=== PATIENT | male | born 1955 | race American Indian/Alaskan Native ===

== ENCOUNTER 2018-04-10 10:23 | Emergency (ER) | payer MEDICARE, BC ==
[2018-04-10 11:48] LABS: Basophils % (Auto) 1.4 % (0.0-1.8); Eosinophils % (Auto) 1.5 % (0.0-4.3); Hematocrit 38.4 % (35.5-45.6); Hemoglobin 12.6 gm/dl (11.8-15.2); Lymphocytes # (Auto) 0.7 K/mm3 (1.2-5.4); Lymphocytes % (Auto) 26.4 % (13.4-35.0); Mean Corpuscular HGB Conc 33 % (32-34); Mean Corpuscular Hemoglobin 30 pg (28-32); Mean Corpuscular Volume 93 fl (84-94); Monocytes # (Auto) 0.2 K/mm3 (0.0-0.8); Monocytes % (Auto) 7.6 % (0.0-7.3); Platelet Count 174 K/mm3 (140-440); Red Blood Count 4.14 M/mm3 (3.65-5.03); Red Cell Distribution Width 14.6 % (13.2-15.2)
[2018-04-10 12:04] LABS: BUN/Creatinine Ratio 15; Blood Urea Nitrogen 12 mg/dL (9-20); Calcium 9.4 mg/dL (8.4-10.2); Hemolysis Index 3
[2018-04-10] MEDS ORDERED: TYLENOL PO ONE (12:46)
[2018-04-10 13:40] LABS: Color,Urine Straw (Yellow)
[2018-04-10 13:42] LABS: Bilirubin,Urine Negative (Negative); Blood,Urine 3+ (Negative); Protein,Urine <15 mg/dL mg/dL (Negative)
--- NOTE | 2018-04-10 14:25 | Emergency Department Report ---
HPI - General Chief Complaint: Urogenital-Male Time Seen by Provider: 04/10/18 11:30 - HPI HPI: The patient is a 62-year-old male with a significant history of enlarged prostate and recurrent urinary retention, who presents for evaluation of abdominal pain and decreased urine output. The patient states that this morning upon awakening, approximately 2-3 hours prior to arrival, he developed moderate in severity lower abdominal pain, pressure-like in quality, constant, associated with inability to urinate. The patient denies fever, chills, night sweats, diarrhea, blood in the stool, dark tarry stool, dysuria, hematuria, flank pain, genital discharge, inability to pass flatus. ED Past Medical Hx - Medications Home Medications: Home Medications Medication Instructions Recorded Confirmed Last Taken Type Tamsulosin [Flomax] 0.4 mg PO QDAY #14 cap 04/10/18 Unknown Rx traMADol [Ultram 50 MG tab] 50 mg PO Q6HR PRN #20 tablet 04/10/18 Unknown Rx ED Review of Systems ROS: Stated complaint: CANT URINATE Other details as noted in HPI Constitutional: denies: fever ENT: denies: throat or neck pain Respiratory: denies: cough, shortness of breath Cardiovascular: denies: chest pain Endocrine: denies unexplained weight loss or gain Gastrointestinal: reports abdominal pain, nausea Genitourinary: denies: dysuria Musculoskeletal: denies: leg swelling Skin: denies: rash Neurological: denies: headache Hematological/Lymphatic: denies: easy bleeding or easy bruising Psych: denies sadness or hopelessness Physical Exam - Physical Exam Vital Signs: Vital Signs 04/10/18 04/10/18 04/10/18 10:26 11:55 11:56 Temperature 98.0 F 98.1 F Pulse Rate 115 H 65 Respiratory 15 15 Rate Blood Pressure 156/96 Blood Pressure 129/78 [Right] O2 Sat by Pulse 100 100 100 Oximetry Physical Exam: General: well-nourished, well-developed, no acute distress Head: Normocephalic, atraumatic Eyes: normal sclera ENT: Mucous membranes are pink and moist Neck: trachea midline, neck supple, No neck stiffness, no cervical adenopathy Respiratory: Breath sounds equal bilaterally, no wheezing, rales, or rhonchi Cardio: S1 and S2 present, no murmurs, rubs, gallops, capillary refill is brisk Abdomen: Normoactive bowel sounds, soft abdomen, suprapubic fullness and tenderness to palpation present, no rigidity, no guarding or rebound tenderness Chest WALL/Back: No tenderness to palpation of the chest wall, no CVA tenderness with percussion Musc: No pitting edema Skin: No rash Neuro: no facial drooping, normal speech Psych: Normal affect ED Course Vital Signs 04/10/18 04/10/18 04/10/18 10:26 11:55 11:56 Temperature 98.0 F 98.1 F Pulse Rate 115 H 65 Respiratory 15 15 Rate Blood Pressure 156/96 Blood Pressure 129/78 [Right] O2 Sat by Pulse 100 100 100 Oximetry ED Medical Decision Making - Lab Data Result diagrams: 04/10/18 11:38 04/10/18 11:38 - Medical Decision Making The patient was seen and examined by myself. The patient is placed on a front desk monitor and continuous pulse ox. On initial evaluation, the patient was found to be in no distress. Evaluation orders were placed. Patient was given pain medicine. A Ruffin catheter was placed without difficulty. Lab was also reassuring including normal renal function and urinalysis is negative for UTI. The patient was reevaluated and reported that their symptoms were markedly improved. The patient is stable for discharge with outpatient follow-up. The patient is given follow-up and return instructions. The patient expressed understanding and agreed with the plan. The patient is discharged in stable condition. Critical care attestation.: If time is entered above; I have spent that time in minutes in the direct care of this critically ill patient, excluding procedure time. ED Disposition Clinical Impression: Acute urinary retention, Acute suprapubic pain Disposition: - TO HOME OR SELFCARE Is pt being admited?: No Does the pt Need Aspirin: No Condition: Stable Instructions: Benign Prostatic Hypertrophy (ED), Urinary Retention in Men (ED) Prescriptions: Tamsulosin [Flomax] 0.4 mg PO QDAY #14 cap traMADol [Ultram 50 MG tab] 50 mg PO Q6HR PRN #20 tablet PRN Reason: Pain Referrals: PRIMARY CARE, [Primary Care Provider] - 3-5 Days FRANK MILLER MD [Staff Physician] - 3-5 Days Time of Disposition: 14:18
[2018-04-10 15:25] VITALS: BP 135/79
== END 2018-04-10 15:31 | disposition home or self-care (01) ==
LOC: ED 10:23
DX: R33.9 Retention of urine, unspecified (principal)
CPT/HCPCS: 36415; 51702; 80048; 81001; 85025

== ENCOUNTER 2018-05-14 15:25 | Emergency (ER) | payer MEDICARE, BC ==
--- NOTE | 2018-05-14 15:59 | Emergency Department Report ---
<KALYN PHIPPS P - Last Filed: 05/14/18 23:55> ED Male HPI - General Chief complaint: Urogenital-Male Stated complaint: CANT URINATE/PAIN Time Seen by Provider: 05/14/18 15:58 - Related Data Previous Rx's Medication Instructions Recorded Last Taken Type Tamsulosin [Flomax] 0.4 mg PO QDAY #14 cap 04/10/18 Unknown Rx traMADol [Ultram 50 MG tab] 50 mg PO Q6HR PRN #20 tablet 04/10/18 Unknown Rx HYDROcodone/APAP 5-325 [[place] 1 each PO Q6HR PRN #14 tablet 05/14/18 Unknown Rx 5/325] Ondansetron [Zofran TAB] 4 mg PO Q8HR PRN #20 tablet 05/14/18 Unknown Rx cephALEXin [Keflex] 500 mg PO QID #30 capsule 05/14/18 Unknown Rx Allergies Allergy/AdvReac Type Severity Reaction Status Date / Time aspirin Allergy Unknown Verified 05/14/18 15:32 ED Review of Systems ROS: Stated complaint: CANT URINATE/PAIN Other details as noted in HPI ED Past Medical Hx - Medications Home Medications: Home Medications Medication Instructions Recorded Confirmed Last Taken Type Tamsulosin [Flomax] 0.4 mg PO QDAY #14 cap 04/10/18 Unknown Rx traMADol [Ultram 50 MG tab] 50 mg PO Q6HR PRN #20 tablet 04/10/18 Unknown Rx HYDROcodone/APAP 5-325 [[place] 1 each PO Q6HR PRN #14 tablet 05/14/18 Unknown Rx 5/325] Ondansetron [Zofran TAB] 4 mg PO Q8HR PRN #20 tablet 05/14/18 Unknown Rx cephALEXin [Keflex] 500 mg PO QID #30 capsule 05/14/18 Unknown Rx ED Course Vital Signs 05/14/18 05/14/18 05/14/18 15:29 19:27 19:30 Temperature 98 F Pulse Rate 116 H 74 Respiratory 20 10 L 13 Rate Blood Pressure 150/105 138/76 O2 Sat by Pulse 99 98 Oximetry 05/14/18 05/14/18 05/14/18 19:35 19:45 20:01 Temperature Pulse Rate 73 79 75 Respiratory 14 12 12 Rate Blood Pressure 138/76 138/76 134/71 O2 Sat by Pulse 98 98 98 Oximetry 05/14/18 05/14/18 05/14/18 20:15 20:31 20:45 Temperature Pulse Rate 73 70 69 Respiratory 11 L 11 L 10 L Rate Blood Pressure 134/71 134/71 134/71 O2 Sat by Pulse 97 97 97 Oximetry 05/14/18 05/14/18 05/14/18 21:00 21:15 21:39 Temperature Pulse Rate 66 72 78 Respiratory 11 L 13 25 H Rate Blood Pressure 142/78 142/78 142/78 O2 Sat by Pulse 97 99 100 Oximetry 05/14/18 05/14/18 05/14/18 21:45 22:01 22:15 Temperature Pulse Rate 74 65 56 L Respiratory 15 13 10 L Rate Blood Pressure 142/78 142/78 142/78 O2 Sat by Pulse 100 98 97 Oximetry 05/14/18 05/14/18 05/14/18 22:31 22:45 23:01 Temperature Pulse Rate 67 62 73 Respiratory 10 L 10 L 11 L Rate Blood Pressure 142/78 142/78 142/78 O2 Sat by Pulse 98 98 98 Oximetry 05/14/18 05/14/18 05/14/18 23:15 23:31 23:45 Temperature Pulse Rate 75 78 71 Respiratory 11 L 13 14 Rate Blood Pressure 142/78 142/78 142/78 O2 Sat by Pulse 97 96 98 Oximetry 05/15/18 05/15/18 05/15/18 00:01 00:15 00:31 Temperature Pulse Rate 69 71 70 Respiratory 13 15 16 Rate Blood Pressure 142/78 142/78 142/78 O2 Sat by Pulse 98 97 97 Oximetry 05/15/18 05/15/18 05/15/18 00:45 01:01 01:15 Temperature Pulse Rate 70 81 63 Respiratory 13 11 L 12 Rate Blood Pressure 142/78 142/78 142/78 O2 Sat by Pulse 98 99 98 Oximetry 05/15/18 05/15/18 01:43 02:00 Temperature Pulse Rate Respiratory Rate Blood Pressure 142/78 142/78 O2 Sat by Pulse Oximetry ED Medical Decision Making - Lab Data Result diagrams: 05/14/18 16:40 05/14/18 19:44 Critical care attestation.: If time is entered above; I have spent that time in minutes in the direct care of this critically ill patient, excluding procedure time. ED Disposition Clinical Impression: Urinary retention Abdominal pain Qualifiers: Abdominal location: lower abdomen, unspecified Qualified Code(s): R10.30 - Lower abdominal pain, unspecified UTI (urinary tract infection) Qualifiers: Urinary tract infection type: acute cystitis Hematuria presence: without hematuria Qualified Code(s): N30.00 - Acute cystitis without hematuria Disposition: TO HOME OR SELFCARE Is pt being admited?: No Does the pt Need Aspirin: No Condition: Stable Instructions: Urinary Retention in Men (ED), Urinary Tract Infection in Men (ED ) Prescriptions: cephALEXin [Keflex] 500 mg PO QID #30 capsule HYDROcodone/APAP 5-325 [[place] 5/325] 1 each PO Q6HR PRN #14 tablet PRN Reason: Pain Ondansetron [Zofran TAB] 4 mg PO Q8HR PRN #20 tablet PRN Reason: Nausea Referrals: PRIMARY CARE, [Primary Care Provider] - 3-5 Days NELI PASCAL MD [Staff Physician] - 3-5 Days Time of Disposition: 23:56 <LEOBARDO BACON - Last Filed: 05/18/18 16:14> ED Male HPI - General Source: patient Mode of arrival: Ambulatory Limitations: No Limitations - History of Present Illness Initial comments: Patient said that this morning he couldn't urinate. He had the same problem last week and he was discharged home from the ED with a Ruffin catheter. The catheter was taken out last Tuesday by his urologist Dr. Franky Liriano. However this morning he noticed that he could not urinate. He also complained of suprapubic abdominal pain. Patient has a history of prostate cancer. Complaint: other (Urinary Obstruction) -: Sudden Radiation: none Severity: moderate Severity scale (0 -10): 5 Quality: aching Consistency: constant Improves with: urination Worsens with: none urinary retention ED Review of Systems Comment: All other systems reviewed and negative Constitutional: denies: chills, fever Eyes: denies: eye pain ENT: denies: ear pain Respiratory: denies: cough, orthopnea, shortness of breath Cardiovascular: denies: chest pain, palpitations, dyspnea on exertion, orthopnea Endocrine: no symptoms reported Gastrointestinal: abdominal pain. denies: nausea, vomiting, diarrhea Genitourinary: urgency, frequency. denies: hematuria Musculoskeletal: denies: back pain Skin: denies: rash, lesions, change in color Neurological: denies: headache, weakness, numbness, paresthesias Psychiatric: denies: anxiety, depression Hematological/Lymphatic: denies: easy bleeding, easy bruising ED Past Medical Hx - Past Medical History Additional medical history: enlarged prostate-PROSTATE CA-seed implant - Surgical History Additional Surgical History: left ankle - Social History Smoking Status: Never Smoker Substance Use Type: None ED Physical Exam - General Limitations: No Limitations General appearance: alert, in no apparent distress - Head Head exam: Present: atraumatic, normocephalic, normal inspection - Eye Eye exam: Present: normal appearance, PERRL, EOMI Pupils: Present: normal accommodation - ENT ENT exam: Present: normal exam, normal orophraynx, mucous membranes moist - Neck Neck exam: Present: normal inspection, full ROM. Absent: tenderness - Respiratory Respiratory exam: Present: normal lung sounds bilaterally. Absent: respiratory distress, wheezes, rales, rhonchi, stridor - Cardiovascular Cardiovascular Exam: Present: regular rate, normal rhythm, normal heart sounds - GI/Abdominal GI/Abdominal exam: Present: soft, tenderness (Suprapubic), normal bowel sounds. Absent: distended, guarding, rebound, rigid - Rectal Rectal exam: Present: deferred - Back Exam Back exam: Present: normal inspection, full ROM. Absent: tenderness, CVA tenderness (R), CVA tenderness (L) - Neurological Exam Neurological exam: Present: alert, oriented X3, CN II-XII intact - Psychiatric Psychiatric exam: Present: normal affect, normal mood - Skin Skin exam: Present: warm, dry, intact, normal color. Absent: rash ED Course - Reevaluation(s) Reevaluation #1: 05/14/18 21:44 Patient care was transitioned to Dr. Phipps at the end of my shift. Patient is pending CT scan of the abdomen and pelvis with by mouth and IV contrast. Dr Phipps to disposition patient after the CT scan has resulted. - Catheter Insertion (Urinary) Indications: to alleviate urinary retention Does Patient Have: no prosthetic heart valve, no penile implant, no artificial urethral sphincter Prophylactic Antibiotics Given: Yes (Levaquin) Bladder Scan/US before Catherization: Yes Estimated Amount of Urine (mls): 400 Preparation: Providone-Iodine Type of Catheter Inserted: Ruffin, coude tip Catheter Iraqi Size: 16 Catheter Balloon Size (mls): 10 Topical Anesthesia Used: No Results: successfully catherized-immediate flow, ultrasound used for placement verification Patient Tolerated Procedure: well Complications: none ED Medical Decision Making - Lab Data Result diagrams: 05/14/18 16:40 05/14/18 19:44 - Radiology Data Radiology results: report reviewed, image reviewed - Medical Decision Making Urinary Retention. Suprapubic Abdominal Pain. Critical care time in (mins) excluding proc time.: 0 ED Disposition Is pt being admited?: No Does the pt Need Aspirin: No
[2018-05-14] MEDS ORDERED: ZOFRAN IV ONE (16:20)
[2018-05-14] MEDS ORDERED: MORPHINE IV ONE (16:20)
[2018-05-14 16:50] LABS: Basophils % (Auto) 1.1 % (0.0-1.8); Eosinophils # (Auto) 0.1 K/mm3 (0.0-0.4); Hematocrit 42.3 % (35.5-45.6); Hemoglobin 13.8 gm/dl (11.8-15.2); Lymphocytes # (Auto) 1.2 K/mm3 (1.2-5.4); Lymphocytes % (Auto) 30.6 % (13.4-35.0); Mean Corpuscular HGB Conc 33 % (32-34); Mean Corpuscular Hemoglobin 31 pg (28-32); Mean Corpuscular Volume 94 fl (84-94); Monocytes # (Auto) 0.3 K/mm3 (0.0-0.8); Monocytes % (Auto) 6.6 % (0.0-7.3); Platelet Count 207 K/mm3 (140-440); Red Blood Count 4.51 M/mm3 (3.65-5.03); Red Cell Distribution Width 15.3 % (13.2-15.2)
[2018-05-14 16:58] LABS: INR 1.07 (0.87-1.13)
[2018-05-14 16:59] LABS: Partial Thromboplastin Time 23.4 Sec. (24.2-36.6)
[2018-05-14] MEDS ORDERED: NACL 0.9% 1000 ML 1,000 ML IV ONE ×2 (18:19)
[2018-05-14 20:07] LABS: Bacteria,Urine 1+ /HPF (Negative); Bilirubin,Urine NEG (Negative); Blood,Urine MOD (Negative); Color,Urine Straw (Yellow); Urobilinogen,Urine < 2.0 mg/dL (<2.0)
[2018-05-14 20:40] LABS: Alanine Aminotransferase 11 units/L (7-56); Albumin 3.9 g/dL (3.9-5); BUN/Creatinine Ratio 14; Blood Urea Nitrogen 11 mg/dL (9-20); Calcium 9.1 mg/dL (8.4-10.2); Hemolysis Index 9
[2018-05-14] MEDS ORDERED: LEVAQUIN 750MG/150ML 750 MG/150 ML BAG IV ONE (21:02)
--- NOTE | 2018-05-14 22:37 | Cat Scan Report ---
FINAL REPORT PROCEDURE: CT ABDOMEN PELVIS W CON TECHNIQUE: Computerized axial tomography of the abdomen and pelvis was performed after the IV injection of iodinated nonionic contrast. HISTORY: Abdominal pain COMPARISON: No prior studies are available for comparison. FINDINGS: Visualized lower thorax: There is a 1 centimeter calcified granuloma at the right lung base. There is a 6 millimeter noncalcified nodule at the left lung base which could be a granuloma. There are no infiltrates.. Liver: Normal size and attenuation. Spleen: Normal size and attenuation. Gallbladder and biliary system: Normal. Pancreas: Normal. Adrenals: Normal. Kidneys: There is mild left hydronephrosis and hydroureter. No stones are seen. A stone may have recently passed... GI tract: There is mucosal thickening of the stomach antrum. This suggests possible gastritis. There is no mass or obstruction. There is moderate stool in the colon. There is no obstruction, colitis or enteritis. The appendix is normal. Lymph nodes and mesentery: Normal. Vasculature: Normal. Bladder: Urinary bladder wall is thickened. There is a Ruffin catheter. Reproductive organs: There are radium seeds in the prostate. Peritoneum: There is no ascites or free air, abscess or adenopathy.. Musculoskeletal structures: No significant abnormality. Other: None. IMPRESSION: There is mild left hydronephrosis and hydroureter. No stones are seen. A stone may have recently passed... There is mucosal thickening of the stomach antrum. This suggests possible gastritis. There is no mass or obstruction. There is moderate stool in the colon. There is no obstruction, colitis or enteritis. The appendix is normal. Urinary bladder wall is thickened. There is a Ruffin catheter. There is no ascites or free air, abscess or adenopathy.. There is a 1 centimeter calcified granuloma at the right lung base. There is a 6 millimeter noncalcified nodule at the left lung base which could be a granuloma. There are no infiltrates..
[2018-05-14] MEDS ORDERED: NACL 0.9% 1000 ML 1,000 ML ONE (23:44)
[2018-05-15 03:39] VITALS: BP 142/78
== END 2018-05-15 01:30 | disposition home or self-care (01) ==
LOC: ED 15:25
DX: R33.9 Retention of urine, unspecified (principal); N30.00 Acute cystitis without hematuria; Z88.6 Allergy status to analgesic agent
CPT/HCPCS: 36415; 51702; 74177; 80053; 81001; 85025; 85610; 85730; 87076; 87086; 87186; 96365; 96375; 99284; J1956; J2270; J2405; J7030; Q9967

== ENCOUNTER 2019-07-11 11:03 | Emergency (ER) | payer BC, MEDICARE ==
[2019-07-11 12:10] LABS: Bilirubin,Urine NEG (Negative); Blood,Urine SM (Negative); Color,Urine Colorless (Yellow); Protein,Urine <15 mg/dL mg/dL (Negative); Urobilinogen,Urine < 2.0 mg/dL (<2.0); WBC,Urine < 1.0 /HPF (0.0-6.0)
[2019-07-11 13:05] LABS: Hematocrit 41.7 % (35.5-45.6); Hemoglobin 13.7 gm/dl (11.8-15.2); Mean Corpuscular HGB Conc 33 % (32-34); Mean Corpuscular Volume 95 fl (84-94); Platelet Count 183 K/mm3 (140-440); Red Blood Count 4.41 M/mm3 (3.65-5.03); Red Cell Distribution Width 15.4 % (13.2-15.2)
[2019-07-11 13:18] LABS: Alanine Aminotransferase 19 units/L (7-56); Albumin 4.5 g/dL (3.9-5); BUN/Creatinine Ratio 18; Blood Urea Nitrogen 16 mg/dL (9-20); Calcium 9.8 mg/dL (8.4-10.2); Hemolysis Index 19
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
[2019-07-11 16:04] VITALS: BP 145/85
== END 2019-07-11 16:07 | disposition home or self-care (01) ==
LOC: ED 11:03
DX: R32 Unspecified urinary incontinence (principal); Z85.46 Personal history of malignant neoplasm of prostate; Z79.899 Other long term (current) drug therapy; Z98.890 Other specified postprocedural states; Z88.6 Allergy status to analgesic agent
CPT/HCPCS: 36415; 51702; 80053; 81001; 85027